=== PATIENT | female | born 1950 | race Caucasian/White ===

== ENCOUNTER → 2017-12-14 | Outpatient (CLI) | payer MEDICARE, OTHER ==
[~2017-12-14] MED LIST: BACL10TA PO; FLUO20CA25 PO; KETO-22 PO; LEVO75TA57 PO; NORT25CA PO; TOPI100T PO
--- NOTE | 2017-12-14 15:07 | Diagnostic Imaging Report ---
PROCEDURE: CT abdomen and pelvis without contrast. TECHNIQUE: Multiple contiguous axial images were obtained through the abdomen and pelvis without the use of intravenous contrast. INDICATION: Frequent urinary tract infections. COMPARISON: No prior studies are available for comparison. FINDINGS: Lung bases are clear. No discrete liver masses identified. The gallbladder is unremarkable. Pancreas and spleen are unremarkable. No adrenal masses detected. No renal calculi are detected. No hydronephrosis is seen. Aorta is calcified but nonaneurysmal. There appears to be a large amount of stool throughout the colon consistent with constipation. Bowel loops are nonobstructed. There is no free fluid identified. Calcification in midline pelvis is likely a calcified uterine fibroid. The bladder is unremarkable. No lymphadenopathy is seen. IMPRESSION: 1. No evidence of urinary tract calculi or obstruction. 2. Probable calcified uterine fibroid. 3. Constipation. Dictated by: Dictated on workstation # [id number]
== END ==
LOC: RAD 14:15
PROVIDERS: ATTEND Urology
DX: K59.00 Constipation, unspecified (principal); N39.0 Urinary tract infection, site not specified
CPT/HCPCS: 74176

== ENCOUNTER → 2019-03-30 | Outpatient (CLI) | payer MEDICARE, OTHER ==
--- NOTE | 2019-03-30 15:06 | Diagnostic Imaging Report ---
INDICATION: Left hip pain. TECHNIQUE: An AP view of the pelvis and two views of the left hip were obtained. FINDINGS: The pelvic ring is intact. The hip spaces are well maintained and symmetric. The articular surfaces are smooth. There is no fracture or dislocation. IMPRESSION: Negative pelvis and left hip. Dictated by: Dictated on workstation # [id number]
== END ==
LOC: RAD 14:39
PROVIDERS: ATTEND Internal Medicine
DX: M25.552 Pain in left hip (principal); R10.2 Pelvic and perineal pain; W19.XXXA Unspecified fall, initial encounter; Y92.009 Unspecified place in unspecified non-institutional (private) residence as the place of occurrence of the external cause

== ENCOUNTER → 2020-02-06 | Outpatient (CLI) | payer MEDICARE, OTHER ==
--- NOTE | 2020-02-06 11:35 | Diagnostic Imaging Report ---
PROCEDURE: US left lower extremity venous. TECHNIQUE: Multiple real-time grayscale images were obtained over the left lower extremity in various projections. Additional duplex Doppler and color Doppler images were also obtained. INDICATION: Left calf pain. There is no evidence of left lower extremity DVT. Left lower extremity venous system shows normal compressibility with normal response to augmentation and Valsalva. Complex fluid collection left popliteal fossa is noted measuring 4.2 x 2.4 x 0.5 cm. IMPRESSION: 1. No evidence of left lower extremity DVT. 2. Complex popliteal cyst. Dictated by: Dictated on workstation # [id number]
--- NOTE | 2020-02-06 11:36 | Diagnostic Imaging Report ---
INDICATION: Left knee pain and swelling. TIME OF EXAM: 10:49 AM 3 views of the left knee were obtained. Alignment is normal. No fracture, dislocation or effusion is detected. There is generalized demineralization. There is very mild medial and patellofemoral degenerative change. IMPRESSION: Chronic changes. No acute bony abnormality is detected. Dictated by: Dictated on workstation # [id number]
== END ==
LOC: RAD 10:28
PROVIDERS: ATTEND Internal Medicine
DX: M79.89 Other specified soft tissue disorders (principal); M71.22 Synovial cyst of popliteal space [Baker], left knee
CPT/HCPCS: 73562

== ENCOUNTER 2022-05-16 05:36 | Outpatient (CLI) | payer MEDICARE, OTHER ==
[~2022-05-16] VITALS: Ht 170.2 cm; Wt 48.6 kg
[2022-05-19] MEDS ORDERED: GABA-486 PO (10:02)
[2022-05-19] MEDS ORDERED: LEVO300T5 PO (10:02)
== END 2022-05-19 10:09 | disposition home or self-care (01) ==
LOC: PREOP 05:36
PROVIDERS: ATTEND Specialist
DX: Z01.818 Encounter for other preprocedural examination (principal)

== ENCOUNTER 2022-05-23 08:58 | Day surgery (SDC) | payer MEDICARE, OTHER ==
[~2022-05-23] VITALS: Ht 170.2 cm; Wt 48.6 kg
[~2022-05-23 08:58] MED LIST changes: +GABA-486 PO; +LEVO300T5 PO
[2022-05-23] MEDS ORDERED: MIDAZOLAM 2 MG/2 ML (VERSED) VIAL ONE (09:02)
[2022-05-23] MEDS ORDERED: TIMOLOL MALEATE 0.5% 5 ML (TIMOPTIC) BTL OU PRN (09:15)
[2022-05-23] MEDS ORDERED: POVIDONE (BETADINE) OPHTH SOLN 5% 30 ML OP ONE (09:15)
[2022-05-23] MEDS ORDERED: MOXIFLOXACIN OPHTH SOLN 5 MG/ML 0.3 ML SYRINGE OP ONE (09:15)
[2022-05-23] MEDS: TETRACAINE 0.5% OPHTH SOLN 4 ML BTL (SINGLE DOSE ONLY) OU PRN ×4 (09:16→09:33)
[2022-05-23] MEDS: PHENYLEPHRINE 10% OPHTH (NEO-SYN) 5 ML BTL OU SCH ×3 (09:22→09:33)
[2022-05-23] MEDS: TROPICAMIDE 1% OPH SOLN (MYDRIACYL) 15 ML BTL OP SCH ×3 (09:22→09:33)
[2022-05-23 09:27] VITALS: BP 172/82
--- NOTE | 2022-05-23 09:59 | Ophthalmologist Pre-Op Note ---
Pre-Operative Progress Note H&P Reviewed The H&P was reviewed, patient examined and no changes noted. Date H&P Reviewed: May 23, 2022 Time H&P Reviewed: 09:59 Pre-Op Dx Cataract, Left Eye SEAN CALVERT MD May 23, 2022 09:59
--- NOTE | 2022-05-23 10:18 | Ophthalmology Operative Report ---
Cataract removal/placement IOL PREOPERATIVE DIAGNOSIS: Cataract Left Eye POSTOPERATIVE DIAGNOSIS: Cataract Left Eye PROCEDURE: Cataract removal and placement of posterior chamber implant, left eye SURGEON: Oscar Calvert ANESTHESIA: Topical with sedation COMPLICATIONS: None ESTIMATED BLOOD LOSS: Minimal DESCRIPTION OF PROCEDURE: After proper informed consent was obtained, the patient, a 72 female, was taken to the Operating Room and the left eye was anesthetized with tetracaine. The left eye was then prepped and draped in the usual manner. A wire lid speculum was placed. A paracentesis was made at the left hand position. Preservative free lidocaine was injected into the anterior chamber followed by viscoelastic. A clear corneal incision was made in the temporal position. A capsulorrhexis was preformed and the central nuclear and cortical material were removed. The posterior capsule was polished and an Ihsan 15.0 AU00T0 was placed into the capsular bag. The residual viscoelastic was aspirated and balanced saline solution was injected into the anterior chamber. Moxifloxacin was injected into the anterior chamber. The wound was checked and found to be water tight. The patient tolerated the procedure well without complications. OSCAR CALVERT MD May 23, 2022 10:18
[2022-05-23 10:25] VITALS: BP 163/106
[2022-05-23] MEDS ORDERED: acetaZOLAMIDE ER 500 MG CAP (DIAMOX SEQUELS) PO ONE (13:30)
--- NOTE | 2022-05-23 14:01 | Anesthesia-General Post-Op ---
MAC Patient Condition Mental Status/LOC: Same as Preop Cardiovascular: Satisfactory Nausea/Vomiting: Absent Respiratory: Satisfactory Pain: Controlled Complications: Absent Post Op Complications Complications None Follow Up Care/Instructions Patient Instructions None needed. Anesthesiology Discharge Order Discharge Order Patient is doing well, no complaints, stable vital signs, no apparent adverse anesthesia problems. No complications reported per nursing. JENAE ROBERTSON CRNA May 23, 2022 14:01
== END 2022-05-23 10:26 | disposition home or self-care (01) ==
LOC: SDC 08:58
PROVIDERS: ATTEND Specialist
DX: H25.9 Unspecified age-related cataract (principal); Z87.891 Personal history of nicotine dependence
CPT/HCPCS: 66984; V2632

== ENCOUNTER 2022-05-30 13:19 | Outpatient (CLI) | payer MEDICARE, OTHER | END 2022-05-30 14:53 | LOC: PREOP 13:19 | PROVIDERS: ATTEND Specialist | DX: Z01.818 Encounter for other preprocedural examination (principal) ==

== ENCOUNTER 2022-06-06 09:08 | Day surgery (SDC) | payer MEDICARE, OTHER ==
[~2022-06-06] VITALS: Ht 170.2 cm; Wt 48.6 kg
[2022-06-06] MEDS ORDERED: POVIDONE (BETADINE) OPHTH SOLN 5% 30 ML OP ONE (09:15)
[2022-06-06] MEDS ORDERED: TIMOLOL MALEATE 0.5% 5 ML (TIMOPTIC) BTL OU PRN (09:15)
[2022-06-06] MEDS ORDERED: MOXIFLOXACIN OPHTH SOLN 5 MG/ML 0.3 ML SYRINGE OP ONE (09:15)
[2022-06-06] MEDS: TETRACAINE 0.5% OPHTH SOLN 4 ML BTL (SINGLE DOSE ONLY) OU PRN ×4 (09:17→09:33)
[2022-06-06] MEDS: PHENYLEPHRINE 10% OPHTH (NEO-SYN) 5 ML BTL OU SCH ×3 (09:23→09:33)
[2022-06-06] MEDS: TROPICAMIDE 1% OPH SOLN (MYDRIACYL) 15 ML BTL OP SCH ×3 (09:23→09:33)
[2022-06-06 09:30] VITALS: BP 170/78
[2022-06-06] MEDS ORDERED: MIDAZOLAM 2 MG/2 ML (VERSED) VIAL ONE (10:00)
--- NOTE | 2022-06-06 10:18 | Ophthalmology Operative Report ---
Cataract removal/placement IOL PREOPERATIVE DIAGNOSIS: Cataract Right Eye POSTOPERATIVE DIAGNOSIS: Cataract Right Eye PROCEDURE: Cataract removal and placement of posterior chamber implant, right eye SURGEON: Oscar Calvert ANESTHESIA: Topical with sedation COMPLICATIONS: None ESTIMATED BLOOD LOSS: Minimal DESCRIPTION OF PROCEDURE: After proper informed consent was obtained, the patient, a 72 female, was taken to the Operating Room and the right eye was anesthetized with tetracaine. The right eye was then prepped and draped in the usual manner. A wire lid speculum was placed. A paracentesis was made at the left hand position. Preservative free lidocaine was injected into the anterior chamber followed by viscoelastic. A clear corneal incision was made in the temporal position. A capsulorrhexis was preformed and the central nuclear and cortical material were removed. The posterior capsule was polished and Ihsan 15.5 AU00T0 IOL was placed into the capsular bag. The residual viscoelastic was aspirated and balanced saline solution was injected into the anterior chamber. Moxifloxacin was injected into the anterior chamber. The wound was checked and found to be water tight. The patient tolerated the procedure well without complications. OSCAR CALVERT MD Jun 06, 2022 10:18
--- NOTE | 2022-06-06 10:18 | Ophthalmologist Pre-Op Note ---
Pre-Operative Progress Note H&P Reviewed The H&P was reviewed, patient examined and no changes noted. Date H&P Reviewed: Jun 06, 2022 Time H&P Reviewed: 09:57 Pre-Op Dx Cataract, Right Eye SEAN CALVERT MD Jun 06, 2022 10:18
--- NOTE | 2022-06-06 10:18 | Ophthalmologist Pre-Op Note ---
Pre-Operative Progress Note H&P Reviewed The H&P was reviewed, patient examined and no changes noted. Date H&P Reviewed: Jun 06, 2022 Time H&P Reviewed: 10:18 Pre-Op Dx Cataract, Right Eye SEAN CALVERT MD Jun 06, 2022 10:18
[2022-06-06 10:38] VITALS: BP 166/85
--- NOTE | 2022-06-06 11:53 | Anesthesia-General Post-Op ---
MAC Patient Condition Mental Status/LOC: Same as Preop Cardiovascular: Satisfactory Nausea/Vomiting: Absent Respiratory: Satisfactory Pain: Controlled Complications: Absent Post Op Complications Complications None Follow Up Care/Instructions Patient Instructions None needed. Anesthesiology Discharge Order Discharge Order Patient is doing well, no complaints, stable vital signs, no apparent adverse anesthesia problems. No complications reported per nursing. ELIAS DUNAWAY CRNA Jun 06, 2022 11:53
[2022-06-06] MEDS ORDERED: acetaZOLAMIDE ER 500 MG CAP (DIAMOX SEQUELS) PO ONE (12:00)
== END 2022-06-06 10:39 | disposition home or self-care (01) ==
LOC: SDC 09:08
PROVIDERS: ATTEND Specialist
DX: H25.9 Unspecified age-related cataract (principal); Z87.891 Personal history of nicotine dependence
CPT/HCPCS: 66984; V2632

== ENCOUNTER 2023-05-25 10:51 | Outpatient (RCR) | payer MEDICARE ==
[2023-06-12] MEDS ORDERED: LEVO100T7 PO (12:48)
[2023-06-12] MEDS ORDERED: MULT-1136 PO (12:48)
[2023-06-12] MEDS ORDERED: GABA300C PO (12:48)
[2023-06-12] MEDS ORDERED: FLUO20TA28 PO (12:48)
[2023-06-12] MEDS ORDERED: MECO10005 PO (12:48)
[2023-06-12] MEDS ORDERED: CALC-823 PO (12:48)
[2023-06-12] MEDS ORDERED: TOPI-241 PO (12:48)
== END 2023-06-16 | disposition home or self-care (01) ==
LOC: LAB 10:51 → EDSTATUS 10:51
PROVIDERS: ATTEND Surgery
DX: K52.9 Noninfective gastroenteritis and colitis, unspecified (principal)
CPT/HCPCS: 87015; 87045; 87046; 87324; 87328; 87329; 87449; 87899

== ENCOUNTER 2023-06-10 05:49 | Outpatient (CLI) | payer MEDICARE ==
[~2023-06-10] VITALS: Ht 170.2 cm; Wt 47.2 kg
[2023-06-12] MEDS ORDERED: TOPI-241 PO (12:48)
[2023-06-12] MEDS ORDERED: GABA300C PO (12:48)
[2023-06-12] MEDS ORDERED: MECO10005 PO (12:48)
[2023-06-12] MEDS ORDERED: CALC-823 PO (12:48)
[2023-06-12] MEDS ORDERED: MULT-1136 PO (12:48)
[2023-06-12] MEDS ORDERED: LEVO100T7 PO (12:48)
[2023-06-12] MEDS ORDERED: FLUO20TA28 PO (12:48)
== END 2023-06-12 12:52 | disposition home or self-care (01) ==
LOC: PREOP 05:49
PROVIDERS: ATTEND Surgery
DX: Z01.818 Encounter for other preprocedural examination (principal)

== ENCOUNTER 2023-06-23 08:50 | Day surgery (SDC) | payer MEDICARE ==
[~2023-06-23] VITALS: Ht 170.2 cm; Wt 47.2 kg
[~2023-06-23 08:50] MED LIST changes: +CALC-823 PO; +FLUO20TA28 PO; +GABA300C PO; +LEVO100T7 PO; +MECO10005 PO; +MULT-1136 PO; +TOPI-241 PO
[2023-06-23] MEDS ORDERED: LACTATED RINGERS 1,000 ML 1,000 ML IV STA (08:53)
--- NOTE | 2023-06-23 08:58 | Progress Note-Pre Operative ---
Pre-Operative Progress Note Date H&P Reviewed: Jun 23, 2023 Time H&P Reviewed: 08:58 History & Physical: H&P Reviewed, Patient Examed, No changes noted Pre-Operative Diagnosis: chronic diarrhea, fecal urgency EDWARD GOMEZ DO Jun 23, 2023 08:58
[2023-06-23 09:00] VITALS: BP 174/95
--- NOTE | 2023-06-23 10:04 | Progress Note-Post Operative ---
Post-Operative Progess Note Surgeon (s)/Logistics Lead (s) Surgeon EDWARD GOMEZ DO Logistics Lead: n/a Pre-Operative Diagnosis chronic diarrhea, fecal urgency Post-Operative Diagnosis chronic diarrhea, normal colon Procedure & Operative Findings Date of Procedure 06/23/23 Procedure Performed/Findings colonoscopy with random cold biopsies Anesthesia Type per [employer] Estimated Blood Loss Estimated blood loss (mL): none Specimens/Packing Specimens Removed Random colon biopsies EDWARD GOMEZ DO Jun 23, 2023 10:04
[2023-06-23 10:05] VITALS: BP 107/55
--- NOTE | 2023-06-23 10:07 | Discharge Inst-Simple/Standard ---
Discharge Inst-Standard Patient Instructions/Follow Up Plan of Care/Instructions/FU: 2 weeks rosalia Activity as Tolerated: Yes Discharge Diet: Regular Diet (high fiber diet) EDWARD GOMEZ DO Jun 23, 2023 10:07
[2023-06-23 10:20] VITALS: BP 109/61
[2023-06-23 10:29] VITALS: BP 109/61
--- NOTE | 2023-06-23 13:56 | Anesthesia-General Post-Op ---
MAC Patient Condition Mental Status/LOC: Same as Preop Cardiovascular: Satisfactory Nausea/Vomiting: Absent Respiratory: Satisfactory Pain: Controlled Complications: Absent Post Op Complications Complications None Follow Up Care/Instructions Patient Instructions None needed. Anesthesiology Discharge Order Discharge Order Patient is doing well, no complaints, stable vital signs, no apparent adverse anesthesia problems. No complications reported per nursing. ELIAS DUNAWAY CRNA Jun 23, 2023 13:56
--- NOTE | 2023-06-23 19:28 | OPERATIVE REPORT ---
DATE OF SERVICE: 06/23/2023 PREOPERATIVE DIAGNOSIS: Chronic diarrhea. POSTOPERATIVE DIAGNOSIS: Chronic diarrhea, normal colon. PROCEDURE: Colonoscopy with random cold biopsies. SURGEON: Edward Carcamo DO ANESTHESIA: Per OPTOMETRIC TECH. ESTIMATED BLOOD LOSS: None. COMPLICATIONS: None. INDICATIONS: The patient is a 73-year-old female with chronic diarrhea She understands risks and benefits of procedure and wished to proceed. Consent was signed in chart. DESCRIPTION OF PROCEDURE: The patient was taken to endoscopy suite, placed in left lateral recumbent position. Timeout was performed. Digital rectal exam was performed. No palpable polyps, masses or ulcerations. Scope was inserted in the rectum, advanced all the way to the cecum with minimal difficulty. Prep was adequate. Scope was slowly retracted back. No polyps, masses or ulcerations in the cecum, ascending, transverse, descending and sigmoid colon. Had some redundancy of the colon. As the scope was being retracted, random cold biopsies were obtained. Once in the rectum, scope was retroflexed noting no other pathology. Scope was returned to its normal position, slowly withdrawn until completely removed. The patient tolerated the procedure well without complications, taken to recovery room in stable condition. RECOMMENDATIONS: The patient will follow up on pathology. We will recommend repeat colonoscopy [ ] benefits outweigh the risks or could be done due to age. The patient will follow up in 2 weeks to discuss pathology results and make further recommendations. Job ID: [id number] DocumentID: [id number] Dictated Date: 06/23/2023 10:05:50 Can Labeler Date: 06/23/2023 19:26:00 Dictated By: EDWARD CARCAMO DO
== END 2023-06-23 10:38 | disposition home or self-care (01) ==
LOC: ENDO 08:50
PROVIDERS: ATTEND Surgery
DX: K52.9 Noninfective gastroenteritis and colitis, unspecified (principal); R15.2 Fecal urgency; Z87.891 Personal history of nicotine dependence
CPT/HCPCS: 88305